=== PATIENT | female | born 2000 ===

== ENCOUNTER → 2021-04-29 | Outpatient (CLI) | payer OTHER ==
[2021-05-01 12:09] LABS: CHLAMYDIA BY NAA Negative (Negative); GONOCOCCUS BY NAA Negative (Negative); TRICH VAG BY NAA Negative (Negative)
== END ==
LOC: LAB SHORT 11:32
PROVIDERS: Chiropractor
DX: Z72.51 High risk heterosexual behavior (principal)
CPT/HCPCS: 87491; 87591; 87661